=== PATIENT | male | born 1950 ===

== ENCOUNTER → 2017-09-04 | Outpatient (CLI) | payer MEDICARE, OTHER ==
[2017-09-04 12:02] LABS: PROTHROMBIN TIME 29.4 SEC (11.4-15.4)
== END ==
LOC: WELLCARE 11:41
PROVIDERS: ATTEND Thoracic Surgery (Cardiothoracic Vascular Surgery)
DX: I11.0 Hypertensive heart disease with heart failure (principal); I48.91 Unspecified atrial fibrillation; Z48.812 Encounter for surgical aftercare following surgery on the circulatory system
CPT/HCPCS: 85610